=== PATIENT | female | born 1970 | race Caucasian/White ===

== ENCOUNTER 2019-11-19 03:07 | Emergency (ER) | payer OTHER ==
[~2019-11-19] VITALS: Ht 160 cm; Wt 77.1 kg
[~2019-11-19 03:07] MED LIST: ADVAIR 250-501 EACH IH; ALBUTEROL INHAL17 GM IH; BENTYL; ESTRACE0.5 MG PO; FLEXERIL; FLEXERIL PO; IBUPROFEN 800800 M1; IBUPROFEN 800800 MG PO; LORTAB; MEDROL DOSPAK21 TA1 PO; NOHOMEMEDICATIONS; NORCO 5-325 TA1 EACH PO; ULTRAM 50MG TAB50 MG PO; VISTARIL; ZPAK PO
[2019-11-19] MEDS ORDERED: ZYRTEC10 M5 PO (03:16)
[2019-11-19 03:49] VITALS: BP 121/71
== END 2019-11-19 05:13 | disposition home or self-care (01) ==
LOC: M.ERS 03:07
DX: F41.0 Panic disorder [episodic paroxysmal anxiety] (principal); M79.7 Fibromyalgia; Z88.1 Allergy status to other antibiotic agents; Z88.8 Allergy status to other drugs, medicaments and biological substances; Z90.710 Acquired absence of both cervix and uterus; Z90.49 Acquired absence of other specified parts of digestive tract